=== PATIENT | male | born 1980 | race African-American/Black ===

== ENCOUNTER 2019-10-22 16:02 | Emergency (ER) | payer OTHER ==
[2019-10-23 14:09] LABS: SARS-CoV-2 MS2 Positive; SARS-CoV-2 N Gene Negative; SARS-CoV-2 S Gene Negative; SARS-CoV-2 orf1ab Negative
== END 2019-10-22 16:25 | disposition home or self-care (01) ==
LOC: NAV ERS 16:02
DX: Z20.828 Contact with and (suspected) exposure to other viral communicable diseases (principal); F17.210 Nicotine dependence, cigarettes, uncomplicated
CPT/HCPCS: 87635; 99283; U0003